=== PATIENT | male | born 1965 | race Caucasian/White ===

== ENCOUNTER → 2017-12-31 | Emergency (ER) | payer OTHER ==
[~2017-12-31] VITALS: Ht 172.7 cm; Wt 63.5 kg
[~2017-12-31] MED LIST: BACTRIM DS TAB1 EACH PO; PAXIL20 MG PO; ZIAGEN300 MG PO
== END | disposition home or self-care (01) ==
LOC: ER 00:27
DX: L02.11 Cutaneous abscess of neck (principal)